=== PATIENT | female | born 1995 | race African-American/Black ===

== ENCOUNTER 2023-02-15 11:00 | Emergency (ER) | payer OTHER ==
[2023-02-15 11:10] VITALS: BP 127/87; PULSE 76; RESP 18; TEMP 98.8; BMI 22.8
[2023-02-15] MEDS ORDERED: SODIUM CHLORIDE 0.9% 500 ML INFUS.BAG IV ONE (12:07)
[2023-02-15] MEDS ORDERED: ACETAMINOPHEN 1000 MG/100 ML BAG IVPB ONE (12:07)
[2023-02-15] MEDS ORDERED: ACETAMINOPHEN INJECTION 100 ML IVPB ONE (12:13)
[2023-02-15 12:40] LABS: HEMATOCRIT 41.8 % (32.4-45.2); HEMOGLOBIN 14.2 G/dL (10.7-15.3); MCH 29.8 pg (25.7-33.7); MCHC 33.9 g/dl (32.0-36.0); MEAN CELL VOLUME 87.9 fl (80-96); MEAN PLT VOLUME 8.2 fl (7.5-11.1); PLATELET COUNT 284.8 10^3/uL (134-434); RBC 4.75 10^6/uL (3.60-5.2); RDW 14.3 % (11.6-15.6)
[2023-02-15 12:44] LABS: HCG,QUALITATIVE URINE Negative
[2023-02-15 12:46] LABS: ALBUMIN 4.7 g/dl (3.4-5.0); BLOOD UREA NITROGEN 11.5 mg/dl (7-18); CALCIUM 9.7 mg/dl (8.5-10.1); CREATININE 0.8 mg/dl (0.6-1.3); POTASSIUM 4.4 mmol/L (3.5-5.1); SGOT/AST 18.2 U/L (15-37); SGPT/ALT 15.3 U/L (7-52); TOT PROT 8.1 g/dl (6.4-8.2)
[2023-02-15 13:22] LABS: PLATELET ESTIMATE ADEQUATE
[2023-02-15 13:26] LABS: EPITHELIAL CELLS MODERATE /hpf
[2023-02-15 13:53] LABS: BILIRUBIN,TOTAL 0.7 mg/dL (0.2-1)
== END 2023-02-15 15:15 | disposition home or self-care (01) ==
LOC: FER 11:00
PROC: 3E033NZ Introduction of Analgesics, Hypnotics, Sedatives into Peripheral Vein, Percutaneous Approach (ICD-10-PCS; principal; 2023-02-15)
DX: R10.31 Right lower quadrant pain (principal); R19.7 Diarrhea, unspecified
CPT/HCPCS: 36415; 74177-TC; 76830-TC; 80053; 81003; 81015; 84703; 85027; 87086; 99285-25; Q9967

== ENCOUNTER 2024-08-13 22:58 | Emergency (ER) | payer BC, OTHER ==
[2024-08-13 23:04] VITALS: BP 124/84; PULSE 89; RESP 17; TEMP 98.6; BMI 21.8
== END 2024-08-14 01:02 | disposition home or self-care (01) ==
LOC: FER 22:58
DX: R07.0 Pain in throat (principal); J06.9 Acute upper respiratory infection, unspecified; H61.21 Impacted cerumen, right ear; Z20.822 Contact with and (suspected) exposure to COVID-19
CPT/HCPCS: 0241U-QW; 87651; 99283-25

== ENCOUNTER 2024-10-26 09:55 | Emergency (ER) | payer BC ==
[2024-10-26 10:05] VITALS: BP 122/75; PULSE 88; RESP 16; TEMP 98.2; BMI 22.4
[2024-10-26] MEDS ORDERED: predniSONE 20 MG TABLET (UD) ONE (11:10)
[2024-10-26] MEDS ORDERED: ALBUTEROL SO4 2.5/IPRATROPIUM 0.5 INH SOL 3 ML VIAL.NEB. NEB ONE (11:11)
[2024-10-26] MEDS: ALBUTEROL SO4 2.5/IPRATROPIUM 0.5 INH SOL 3 ML VIAL.NEB. NEB SCH (11:14)
[2024-10-26] MEDS: predniSONE 20 MG TABLET (UD) PO ONE (11:14)
[2024-10-26] MEDS ORDERED: ALBUTEROL SO4 0.083% IH SOL 2.5 MG/3 ML VIAL.NEB. NEB ONE (12:59)
[2024-10-26] MEDS: ALBUTEROL SO4 0.083% IH SOL 2.5 MG/3 ML VIAL.NEB. NEB ONE (13:00)
== END 2024-10-26 13:50 | disposition home or self-care (01) ==
LOC: FER 09:55
PROC: 3E0F7GC Introduction of Other Therapeutic Substance into Respiratory Tract, Via Natural or Artificial Opening (ICD-10-PCS; principal; 2024-10-26)
PROC: 3E0F7GC Introduction of Other Therapeutic Substance into Respiratory Tract, Via Natural or Artificial Opening (ICD-10-PCS; 2024-10-26)
DX: J45.901 Unspecified asthma with (acute) exacerbation (principal); R06.02 Shortness of breath; R05.9 Cough, unspecified; R09.81 Nasal congestion
CPT/HCPCS: 99284-25